=== PATIENT | female | born 1955 | race Caucasian/White ===

== ENCOUNTER 2017-09-25 09:14 | Emergency (ER) | payer BC ==
[~2017-09-25] VITALS: Ht 160 cm; Wt 81.6 kg
[2017-09-25] MEDS ORDERED: OMEP-125 PO (09:54)
--- NOTE | 2017-09-25 09:55 | ER Report ---
History and Physical Time Seen By MD: 09:55 Hx. of Stated Complaint: pateint reports swollen left eye since the . she reports blurry vision and discharge. patient also reports that she is nauseated and tired HPI/ROS CHIEF COMPLAINT: Left orbital cellulitis HISTORY OF PRESENT ILLNESS: 61-year-old female otherwise healthy presents with discoloration overlying left eyelid, blurred vision, double vision, and no fever nausea or vomiting, associated with headache symptoms similar to migraine tried migraine medication yesterday with some improvement today headache is persistent and localized around the left eye. REVIEW OF SYSTEMS: Constitutional: No fever, no chills. Eyes: No discharge. ENT: No sore throat. Cardiovascular: No chest pain, no palpitations. Respiratory: No cough, no shortness of breath. Gastrointestinal: No abdominal pain, no vomiting. Genitourinary: No hematuria. Musculoskeletal: No back pain. Skin: No rashes. Neurological: No headache. Allergies: Coded Allergies: doxycycline (Verified Allergy, Intermediate, headache, 09/25/17) Home Meds Reported Medications Omeprazole (OMEPRAZOLE) 20 Mg Capsule.dr, 1 CAP PO QDAY, CAP 09/25/17 Hx Substance Use Disorder: No Hx Alcohol Use: No Constitutional Vital Sign - Last 24 Hours 09/25/17 09/25/17 09/25/17 09/25/17 09:20 09:30 09:44 09:44 Pulse 70 Resp 20 B/P (MAP) 145/109 (121) 139/83 (101) 139/83 Pulse Ox 96 96 O2 Delivery Room Air 09/25/17 09/25/17 09/25/17 09/25/17 10:00 10:34 10:44 10:49 Pulse 61 64 B/P (MAP) 152/90 (110) 144/98 (113) Pulse Ox 93 97 09/25/17 09/25/17 09/25/17 09/25/17 11:19 11:30 11:35 12:00 Pulse 61 60 B/P (MAP) 136/88 (104) 144/108 (120) 147/83 (104) Pulse Ox 94 95 09/25/17 12:05 Pulse 78 Pulse Ox 93 Physical Exam General Appearance: The patient is alert, has no immediate need for airway protection and no signs of toxicity. Acute distress Eyes: Pupils equal and round no pallor or injection. Periorbital cellulitis is apparent skin over the eyelid is warm red and inflamed this extends below the eye as well. Extraocular movements produce pain in the orbit. She is complaining of blurry vision and double vision ENT, Mouth: Mucous membranes are moist. Respiratory: There are no retractions, lungs are clear to auscultation. Cardiovascular: Regular rate and rhythm. No murmurs gallops or rubs Gastrointestinal: Abdomen is soft and non tender, no masses, bowel sounds normal. Neurological: Normal gross neuro exam extraocular movements are intact in all 4 directions Skin: Warm and dry, no rashes. Musculoskeletal: Neck is supple non tender. Extremities are nontender, nonswollen and have full range of motion. No edema DIFFERENTIAL DIAGNOSIS: After history and physical exam differential diagnosis was considered for preseptal cellulitis periorbital cellulitis or orbital cellulitis migraine headache no signs of meningitis septicemia or other serious infection. Medical Decision Making Data Points Result Diagram: 09/25/17 1033 09/25/17 1033 Laboratory Hematology Test 09/25/17 10:33 Red Blood Count 4.96 M/uL (4.17-5.56) Mean Corpuscular Volume 91.5 fL (80.0-96.0) Mean Corpuscular Hemoglobin 32.0 pg (26.0-33.0) Mean Corpuscular Hemoglobin Concent 34.9 g/dL (32.0-36.0) Red Cell Distribution Width 13.1 % (11.5-14.5) Mean Platelet Volume 8.3 fL (7.2-11.1) Neutrophils (%) (Auto) 55.5 % (39.4-72.5) Lymphocytes (%) (Auto) 34.1 % (17.6-49.6) Monocytes (%) (Auto) 7.6 % (4.1-12.4) Eosinophils (%) (Auto) 1.6 % (0.4-6.7) Basophils (%) (Auto) 1.2 % (0.3-1.4) Nucleated RBC Relative Count (auto) 0.1 /100WBC Neutrophils # (Auto) 3.1 K/uL (2.0-7.4) Lymphocytes # (Auto) 1.9 K/uL (1.3-3.6) Monocytes # (Auto) 0.4 K/uL (0.3-1.0) Eosinophils # (Auto) 0.1 K/uL (0.0-0.5) Basophils # (Auto) 0.1 K/uL (0.0-0.1) Nucleated RBC Absolute Count (auto) 0.01 K/uL Erythrocyte Sedimentation Rate 10 mm/HOUR (0-30) Sodium Level 138 mmol/L (137-145) Potassium Level 3.8 mmol/L (3.5-5.0) Chloride Level 105 mmol/L (98-107) Carbon Dioxide Level 22 mmol/L (22-31) Blood Urea Nitrogen 13 mg/dl (7-18) Creatinine 1.00 mg/dl (0.52-1.04) Glomerular Filtration Rate Calc 56.2 Random Glucose 86 mg/dl (75-110) Calcium Level 9.5 mg/dl (8.4-10.2) C-Reactive Protein < 0.5 mg/dl (<1.0) Chemistry Test 09/25/17 10:33 White Blood Count 5.7 k/uL (4.5-11.0) Red Blood Count 4.96 M/uL (4.17-5.56) Hemoglobin 15.9 g/dL (12.0-16.0) Hematocrit 45.4 % (34.0-47.0) Mean Corpuscular Volume 91.5 fL (80.0-96.0) Mean Corpuscular Hemoglobin 32.0 pg (26.0-33.0) Mean Corpuscular Hemoglobin Concent 34.9 g/dL (32.0-36.0) Red Cell Distribution Width 13.1 % (11.5-14.5) Platelet Count 191 K/uL (150-450) Mean Platelet Volume 8.3 fL (7.2-11.1) Neutrophils (%) (Auto) 55.5 % (39.4-72.5) Lymphocytes (%) (Auto) 34.1 % (17.6-49.6) Monocytes (%) (Auto) 7.6 % (4.1-12.4) Eosinophils (%) (Auto) 1.6 % (0.4-6.7) Basophils (%) (Auto) 1.2 % (0.3-1.4) Nucleated RBC Relative Count (auto) 0.1 /100WBC Neutrophils # (Auto) 3.1 K/uL (2.0-7.4) Lymphocytes # (Auto) 1.9 K/uL (1.3-3.6) Monocytes # (Auto) 0.4 K/uL (0.3-1.0) Eosinophils # (Auto) 0.1 K/uL (0.0-0.5) Basophils # (Auto) 0.1 K/uL (0.0-0.1) Nucleated RBC Absolute Count (auto) 0.01 K/uL Erythrocyte Sedimentation Rate 10 mm/HOUR (0-30) Glomerular Filtration Rate Calc 56.2 Calcium Level 9.5 mg/dl (8.4-10.2) C-Reactive Protein < 0.5 mg/dl (<1.0) ED Course/Re-evaluation ED Course Plan of care agreed-upon prior to orders placed. Ongoing left-sided headache patient refuses medical therapy multiple attempts by providers to encourage treatments failed. Patient states she is okay with IV antibiotics. 1 g of Ancef was provided empirically. 09/25/2017 12:01:19 pm consult was placed to Dr. Yeimy Chavira recommends specific antibiotic therapy we will start Augmentin at this time she is to return to the ER tomorrow if worsening otherwise follow-up Wednesday in the clinic with her PCP. This was discussed with the patient. Homecare medication use reasons to return and follow-up was discussed. I suspect her double vision is related to a migraine and have encouraged therapy on multiple occasions. She has migraine medication at home. Re-evaluation 09/25/2017 12:26:12 pm refusing migraine cocktail states she has migraine medication at home I encouraged her to return or follow-up with an electronics hardware design engineer if visual changes do not resolve. Decision to Disposition Date: Sep 25, 2017 Decision to Disposition Time: 12:22 Depart Departure Latest Vital Signs Vital Signs Date Time Temp Pulse Resp B/P (MAP) Pulse Ox O2 Delivery O2 Flow Rate FiO2 09/25/17 12:05 78 93 09/25/17 12:00 147/83 (104) 09/25/17 09:44 20 Room Air Impression: Primary Impression: Preseptal cellulitis of left eye Additional Impression: Headache Condition: Improved Disposition: HOME OR SELF-CARE New Scripts Amoxicillin/Pot Clav 875-125 Mg Tab (AUGMENTIN 875-125 TABLET) 1 Each Tablet 1 TAB PO Q12H for 10 Days, #20 TAB Prov: SHELLY CHAIREZ MD 09/25/17 Patient Instructions: Periorbital Cellulitis in Adults (ED) Additional Instructions: Return to the ED tomorrow if worsening. See your doctor Wednesday or Wednesday as discussed. Take antibiotics until completion as prescribed. Problem Qualifiers Additional Impression: Headache Headache type: unspecified Headache chronicity pattern: unspecified pattern Intractability: not intractable Qualified Codes: R51 - Headache SHELLY CHAIREZ MD Sep 25, 2017 09:55
[2017-09-25] MEDS ORDERED: IOPAMIDOL 76% 75 ML INFUS BTL 75 ML ONE (10:29)
[2017-09-25 10:44] LABS: PLATELET COUNT, AUTOMATED 191 K/uL (150-450)
[2017-09-25] MEDS ORDERED: ONDANSETRON 4 MG/2 ML VIAL IVP ONE (10:45)
[2017-09-25] MEDS ORDERED: NS(*) 0.9% 1000 ML BAG 1,000 ML IV ONE (11:30)
[2017-09-25] MEDS ORDERED: ceFAZolin 1 GM VIAL IVP ONE (11:30)
--- NOTE | 2017-09-25 11:44 | RADIOLOGY IMAGING REPORT ---
FACILITY: [facility] PATIENT NAME: Leni Ferrera : 1955 MR: [id number] V: [id number] EXAM DATE: ORDERING PHYSICIAN: SHELLY CHAIREZ TECHNOLOGIST: Location: [facility] [place] Patient: Leni Ferrera : 1955 Visit/Account:[id number] Date of Sevice: 09/25/2017 EXAMINATION: CT orbits without IV contrast CT orbits with IV contrast HISTORY: Left orbital cellulitis. TECHNIQUE: Spiral scan was obtained through the orbits without and with intravenous contrast. Sagi ttal and coronal reformatted images are also submitted. One of the following dose optimization techniques was utilized in the performance of this exam: Autom ated exposure control; adjustment of the mA and/or kV according to the patient's size; or use of an i terative reconstruction technique. Specific details can be referenced in the facility's radiology C T exam operational policy. CONTRAST: 75 mL of IV Isovue-370. COMPARISON: None. FINDINGS: Left periorbital soft tissue swelling and edema with mild enhancement. No fluid collections are ident ified in soft tissues of the left orbit. The inflammation all appears to be preseptal. There does not appear to be any post septal extension. The left intraorbital structures are normal in appearance. T he fat shows no inflammatory changes. The muscles are symmetric without focal normality. The left opt ic nerve is normal without abnormal enhancement. The left globe is intact. Lacrimal gland shows no fo silvino abnormality.. The right orbit is normal with no focal normality to the globe or intraorbital structures. The soft t issues around the right orbit show no focal abnormality. The bony structures show no fractures or les ions. Mild leftward deviation nasal septum. Visualized intracranial structures / sinuses / soft tissues: Negative. IMPRESSION: 1. Left periorbital cellulitis. There is no fluid collection. All the inflammation appears to be pres eptal without post septal extension. 2. The remainder the exam is unremarkable. Report Dictated By: Gerardo Copeland at 09/25/2017 11:32 AM Report E-Signed By: Gerardo Copeland at 09/25/2017 11:41 AM WSN:[id number]
[2017-09-25 12:00] VITALS: BP 147/83
[2017-09-25] MEDS ORDERED: AMOX/CLAV 875 MG TAB PO ONE (12:00)
[2017-09-25] MEDS ORDERED: AMOX-559 PO (12:26)
== END 2017-09-25 12:50 | disposition home or self-care (01) ==
LOC: ER 09:39
DX: L03.213 Periorbital cellulitis (principal)
CPT/HCPCS: 36415; 70482; 85025; 85651; 86140; 87040; 96361; 96374; 96375; 99284; J0690; J2405; J7030; Q9967; 82310; 82374; 82435; 82565; 82947; 84132; 84295; 84520

== ENCOUNTER → 2017-12-19 | Outpatient (CLI) | payer BC ==
[~2017-12-19] MED LIST: AMOX-559 PO; IOPAMIDOL 76% 100 ML INFUS BTL 100 ML ONE; NS 0.9% 150 ML BAG 150 ML ONE; OMEP-125 PO
--- NOTE | 2017-12-19 11:31 | RADIOLOGY IMAGING REPORT ---
FACILITY: [facility] - [place] PATIENT NAME: Leni Ferrera : 1955 MR: [id number] V: [id number] EXAM DATE: ORDERING PHYSICIAN: DUSTY MENDOZA TECHNOLOGIST: Location: [facility] [place] Patient: Leni Ferrera : 1955 Visit/Account:[id number] Date of Sevice: 12/19/2017 Abdominal/pelvic CT scan without contrast. HISTORY: Abdominal pain, hematuria. COMPARISON: None. [address] images were obtained of the abdomen and pelvis without contrast. The study is blair ited to the urinary tract for evaluation of stone disease. One of the following dose optimization techniques was utilized in the performance of this exam: Autom ated exposure control; adjustment of the mA and/or kV according to the patient's size; or use of an i terative reconstruction technique. Specific details can be referenced in the facility's radiology C T exam operational policy. FINDINGS: The lung bases are clear. The liver and spleen are normal in size. A small direct hiatal hernia is present. The bile ducts are unremarkable. The gallbladder is incompletely distended. The pancreas is normal in size. The kidneys and adrenal glands are normal in size. No hydronephrosis. No abnormal renal or ureteral calcification s are identified. The abdominal aorta is normal in size. A few phleboliths are scattered in the retro peritoneum and pelvis. Unopacified bowel loops are scattered in the abdomen and pelvis. The uterus is normal in size. The ovaries are not well-visualized. The appendix is normal in size. No abnormal pericecal fluid collections. Mild degenerative changes are present in the spine. IMPRESSION: Small direct hiatal hernia. Otherwise negative unenhanced abdomen and pelvis. COMMENT: The source of hematuria is not identified by this means. Report Dictated By: Adriel Coy MD at 12/19/2017 11:19 AM Report E-Signed By: Adriel Coy MD at 12/19/2017 11:28 AM WSN:[id number]
== END ==
LOC: CT 10:08
PROVIDERS: ATTEND Family Medicine
DX: K44.9 Diaphragmatic hernia without obstruction or gangrene (principal)
CPT/HCPCS: 74178; Q9967

== ENCOUNTER → 2017-12-19 | Outpatient (REF) | payer BC ==
[~2017-12-19] MED LIST changes: -IOPAMIDOL 76% 100 ML INFUS BTL 100 ML ONE; -NS 0.9% 150 ML BAG 150 ML ONE
[2017-12-19 10:34] LABS: PLATELET COUNT, AUTOMATED 208 K/uL (150-450)
== END ==
PROVIDERS: ATTEND Family Medicine
DX: R31.9 Hematuria, unspecified (principal); R10.9 Unspecified abdominal pain
CPT/HCPCS: 82040; 82247; 82310; 82374; 82435; 82565; 82947; 84075; 84132; 84155; 84295; 84450; 84460; 84520; 85025